=== PATIENT | female | born 1955 | race Caucasian/White ===

== ENCOUNTER → 2019-12-21 | Outpatient (CLI) | payer BC ==
--- NOTE | 2019-12-21 16:27 | XR ---
EXAMINATION TYPE: XR hand complete RT DATE OF EXAM: 12/21/2019 CLINICAL HISTORY: Fall injury 2 weeks ago with pain. TECHNIQUE: Frontal, lateral and oblique images of the right hand are obtained. COMPARISON: None. FINDINGS: There is no acute fracture/dislocation evident in the right hand. Mild to moderate degener ative narrowing throughout the PIP and DIP joints of the phalanges. Mild to moderate narrowing and mi ld spurring of base of first metacarpal. The overlying soft tissue appears unremarkable. IMPRESSION: As above .
== END | disposition home or self-care (01) ==
LOC: LABWHC1 15:56
PROVIDERS: ATTEND Family Medicine
DX: M19.041 Primary osteoarthritis, right hand (principal); M25.841 Other specified joint disorders, right hand

== ENCOUNTER 2022-11-18 09:03 | Emergency (ER) | payer BC, OTHER ==
[2022-11-18 09:11] VITALS: RESP 20
--- NOTE | 2022-11-18 09:30 | ED ---
Fall HPI - General Chief Complaint: Fall Stated Complaint: Fall Time Seen by Provider: 11/18/22 09:23 Source: patient, RN notes reviewed Mode of arrival: ambulatory Limitations: no limitations - History of Present Illness Initial Comments: This is a 67-year-old female who presents to the emergency department for a fall. 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 When she fell, she landed on her left knee and hit the front of her head. Denies any loss of consciousness and she is not taking any blood thinners. She does have pain to the left knee and over the left eyebrow. Denies any fevers, chills, sore throat, cough, dyspnea, chest pain, palpitation s, abdominal pain, nausea, vomiting, diarrhea, or back pain. MD Complaint: fall Fall From: standing Place Fall Occurred: work Loss of Consciousness: none Prolonged Down Time?: no Location: face Location - Extremities: Left: Knee - Related Data Home Medications Medication Instructions Recorded Confirmed Multivitamins, Thera [Multivitamin 1 tab PO DAILY 11/18/22 11/18/22 (formulary)] Allergies Allergy/AdvReac Type Severity Reaction Status Date / Time sulfamethoxazole Allergy Rash/Hives Verified 11/18/22 11:39 [From Bactrim] trimethoprim [From Bactrim] Allergy Rash/Hives Verified 11/18/22 11:39 Review of Systems ROS Statement: Those systems with pertinent positive or pertinent negative responses have been documented in the HPI. ROS Other: All systems not noted in ROS Statement are negative. Past Medical History Past Medical History: No Reported History History of Any Multi-Drug Resistant Organisms: None Reported Past Surgical History: No Surgical Hx Reported Past Psychological History: No Psychological Hx Reported Smoking Status: Never smoker Past Alcohol Use History: Occasional Past Drug Use History: None Reported General Exam Limitations: no limitations General appearance: alert, in no apparent distress Head exam: Present: other (Mild swelling over the left eyebrow. No ecchymosis or tenderness) Eye exam: Present: normal appearance, PERRL, EOMI. Absent: scleral icterus, conjunctival injection, periorbital swelling Respiratory exam: Present: normal lung sounds bilaterally. Absent: respiratory distress, wheezes, rales, rhonchi, stridor Cardiovascular Exam: Present: regular rate, normal rhythm, normal heart sounds. Absent: systolic murmur, diastolic murmur, rubs, gallop, clicks Extremities exam: Present: other (Mild tenderness over the left patella) Neurological exam: Present: alert, oriented X3, CN II-XII intact Psychiatric exam: Present: normal affect, normal mood Skin exam: Present: warm, dry, intact, normal color. Absent: rash Course Vital Signs 11/18/22 11/18/22 11/18/22 09:08 09:30 09:38 Temperature 98.2 F 98.7 F 97.0 F L Pulse Rate 95 84 80 Respiratory 20 Rate Blood Pressure 157/95 185/93 185/93 O2 Sat by Pulse 96 96 Oximetry 11/18/22 11/18/22 11:03 12:01 Temperature 98.3 F Pulse Rate 76 79 Respiratory Rate Blood Pressure 164/94 151/100 O2 Sat by Pulse 97 98 Oximetry Medical Decision Making - Medical Decision Making This is a 67-year-old female who presents to the emergency department for a fall. Was pt. sent in by a medical professional or institution? @ -No Did you speak to anyone other than the patient for history? @ -No Did you review nursing and triage notes? @ -Yes, and I agree, it is accurate with regards to the patient's symptoms. Were old charts reviewed? @ -No Differential Diagnosis? @ -Differential Diagnosis Head Injury: Contusion, hematoma, intracranial hemorrhage, skull fracture, whiplash, concussion, this is not meant to be an all-inclusive list. -Differential Knee Injury: Fracture, dislocation, sprain, contusion, meniscus injury, ACL/LCL/MCL/PCL injury, this is not meant to be an all-inclusive list. X-rays interpreted by me (1pt min.)? @ -X-ray of the left knee obtained. My interpretation identify soft tissue swelling and no acute fractures or dislocations. CT interpreted by me (1pt min.)? @ -Computed tomography scan of the brain, facial bones, and c-spine obtained. My interpretation identifies no evidence of an acute intracranial hemorrhage, skull fracture, or cervical spine fracture. What testing was considered but not performed? (CT, X-rays, U/S, labs)? Why? @ -None What meds were considered but not given? Why? @ -None Did you discuss the management of the patient with other professionals? @ -No Did you reconcile home meds? @ -No Was smoking cessation discussed for >3mins.? @ -No Was critical care preformed (if so, how long)? @ -No Were there social determinants of health that impacted care today? How? (Homel essness, low income, unemployed, alcoholism, drug addiction, transportation, low edu. Level, literacy, decrease access to med. care, fpc, rehab)? @ -No Was there de-escalation of care discussed even if they declined? (Discuss DNR or withdrawal of care, Hospice)? @ -No What co-morbidities impacted this encounter? (DM, HTN, Smoking, COPD, CAD, Cancer, CVA, Hep., AIDS, mental health diagnosis, sleep apnea, morbid obesity)? @ -None Was patient admitted / discharged? @ -Discharged. Computed tomography scan of the brain, facial bones, and C- spine obtained revealing no acute findings. X-ray of the left knee consistent with soft tissue swelling and otherwise no acute fractures or other irregularities. Tylenol administered for pain relief in the emergency department. Patient is instructed to alternate with ibuprofen and tylenol for pain relief and apply ice to the areas of pain for 15-20 minutes every 2-3 hours for the first 2-3 days followed by heat there afterwards. Undiagnosed new problem with uncertain prognosis? @ -None Drug Therapy requiring intensive monitoring for toxicity (Heparin, Nitro, Insulin, Cardizem)? @ -None Were any procedures done? @ -None Diagnosis/symptom? @ -Closed heat injury, left knee injury, fall Acute, or Chronic, or Acute on Chronic? @ -Acute Uncomplicated (without systemic symptoms) or Complicated (systemic symptoms)? @ -Uncomplicated Side effects of treatment? @ -None Exacerbation, Progression, or Severe Exacerbation] @ -Not applicable Poses a threat to life or bodily function? @ -No Return precautions reviewed in depth, the patient is instructed to return to the emergency department with any new, worsening, or concerning symptoms. Patient verbalized understanding. This case was discussed in detail with the attending ED physician, Dr. Mccray. Presentation, findings, and treatment plan discussed in detail as well. - Radiology Data Radiology results: report reviewed, image reviewed Disposition Clinical Impression: Fall, Facial contusion, Contusion of left knee Disposition: HOME SELF-CARE Condition: Stable Instructions (If sedation given, give patient instructions): Head Injury (ED), Knee Pain (ED), Fall Prevention (ED) Additional Instructions: Return to the emergency department with any new, worsening, or concerning symptoms. Apply ice to the knee and forehead for 15-20 minutes every 2-3 hours for the first 2-3 days followed by heat there afterwards. Alternate with ibuprofen and Tylenol as needed for pain relief. You can use an over the counter knee brace if you find it beneficial. Follow up with your primary care provider in 1-2 days. Is patient prescribed a controlled substance at d/c from ED?: No Referrals: Rodríguez Parnell DO [Primary Care Provider] - 1-2 days
[2022-11-18] MEDS ORDERED: ACETAMINOPHEN TAB 325 MG TAB PO STA (09:45)
--- NOTE | 2022-11-18 10:46 | XR ---
EXAMINATION TYPE: XR knee complete LT DATE OF EXAM: 11/18/2022 COMPARISON: None HISTORY: 67-year-old female with pain after fall TECHNIQUE: 3 views FINDINGS: Degenerative spurring medial and patellofemoral compartments. No significant joint effusion. Extensor mechanism appears intact. However, there is prominent anterior soft tissue swelling. No acute fractu re, subluxation, or dislocation is seen. IMPRESSION: Anterior soft tissue swelling. No acute osseous abnormality seen. At least mild medial and patellofem oral compartment laterally.
--- NOTE | 2022-11-18 11:29 | CT ---
EXAMINATION TYPE: CT brain loganine wo con DATE OF EXAM: 11/18/2022 COMPARISON: Facial bones 01/19/2014 HISTORY: 67-year-old female with pain after Fall, injury just above Lt eye CT DLP: 1064.4 mGycm Automated exposure control for dose reduction was used. Technique: Examination of the head was done in axial plane without intravenous contrast. Coronal and sagittal reconstructions performed. CT of the cervical spine was obtained in axial plane without intravenous injection of contrast mater ial. Coronal and sagittal reformatted images were obtained from the axial views for evaluation of f ractures, spinal alignment and canal. FINDINGS: Head: There is no evidence of acute intracranial hemorrhage, acute ischemic changes, mass, mass-effect, or extra-axial fluid collection. There is no effacement of cerebral sulci or basal subarachnoid cister ns. There is no hydrocephalus. There is no midline shift. Stallworth-white matter distinction is preserv ed. Left supraorbital soft tissue contusion. No underlying calvarial fracture. There is mild generalized supratentorial volume loss. Moderate patchy white matter hypodensities in b oth cerebral hemispheres. Subinsular white matter hypodensity on the right suggesting chronic ischemi c change. Mastoid air cells well pneumatized. Facial bones reported separately. Cervical spine: Retropharyngeal course right ICA. Mild multilevel degenerative change throughout the cervical spine. More moderate at C5-C6 with degenerative disc disease. Also lower cervical facet and uncovertebral mayela int arthropathy. Slight dextro convex curvature is noted. Trace grade 1 anterolisthesis T1-T2. No craniocervical junction of the body, predental space widening, or prevertebral soft tissue swellin g. Expansion and remodeling of the left jugular foramen appears unchanged from the patient's 2014 CT compatible with benign etiology. No acute fracture of the cervical spine. There may be a mild or moderate narrowing of the spinal canal at C5-C6 secondary to disc osteophyte c omplex. Moderate right neuroforaminal narrowing at C5-C6. Sagittal and coronal reformatted images confirm above findings. COMBINED IMPRESSION: 1. Left supraorbital soft tissue contusion. No underlying calvarial fracture. No acute intracranial a bnormality seen. 2. Mild cerebral atrophy. Moderate burden of chronic small vessel ischemic disease. 3. Mild to moderate spondylotic change cervical spine. No acute fracture.
--- NOTE | 2022-11-18 11:50 | CT ---
EXAMINATION TYPE: CT facial bones wo con DATE OF EXAM: 11/18/2022 COMPARISON: 01/19/14 HISTORY: 67 year old Fall, injury just above Lt eye TECHNIQUE: Contiguous axial scanning of the facial bones without IV contrast. Coronal and sagittal re constructions performed. CT DLP: 1064.4 mGycm Automated exposure control for dose reduction was used. FINDINGS: Left supraorbital soft tissue contusion. Underlying orbits and globes are intact. No nasal bone or fa cial bone fracture seen. Paranasal sinuses are clear. TMJs are intact. IMPRESSION: LEFT SUPRAORBITAL SOFT tissue contusion. No underlying facial bone fracture.
[2022-11-18 12:07] VITALS: BP 151/100; PULSE 79; TEMP 98.3
== END 2022-11-18 12:07 | disposition home or self-care (01) ==
LOC: EC 09:03
DX: S00.83XA Contusion of other part of head, initial encounter (principal); S80.02XA Contusion of left knee, initial encounter; Z88.1 Allergy status to other antibiotic agents; Z88.2 Allergy status to sulfonamides; W01.0XXA Fall on same level from slipping, tripping and stumbling without subsequent striking against object, initial encounter; Y92.219 Unspecified school as the place of occurrence of the external cause; Y93.01 Activity, walking, marching and hiking; Y99.0 Civilian activity done for income or pay
CPT/HCPCS: 70450; 70486; 72125; 99284